=== PATIENT | male | born 1985 | race Caucasian/White ===

== ENCOUNTER 2017-01-16 06:10 | Day surgery (SDC) | payer OTHER ==
[~2017-01-16 06:10] MED LIST: Lactated Ringers 1,000 ML IV SCH; Lidocaine 1%/Sod Bicarbonate in NS 8.4% 1 ML Syringe PRN; Sodium Chloride 0.9% 10 ML Syringe FLUSH PRN
[2017-01-16] MEDS ORDERED: Ondansetron 4 MG/2 ML SDV ONE (06:32)
[2017-01-16] MEDS ORDERED: Propofol 200 MG/20 ML SDV ONE ×2 (06:32→06:51)
[2017-01-16] MEDS ORDERED: ceFAZolin 1 GM Vial ONE (06:32)
[2017-01-16] MEDS ORDERED: Lidocaine 1% 4 ML ONE (06:32)
[2017-01-16] MEDS ORDERED: Dexamethasone 4 MG/ML SDV ONE (06:32)
[2017-01-16] MEDS ORDERED: fentaNYL 250 MCG/5 ML SDV ONE (06:33)
[2017-01-16] MEDS ORDERED: Midazolam 1 MG/ML 2 ML SDV ONE (06:33)
[2017-01-16] MEDS ORDERED: EPINEPHrine 1 MG/ML 30 ML MDV ONE (06:40)
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
[2017-01-16] MEDS: Bupivacaine 0.25% 30 ML SDV ONE ×2 (08:05→08:13)
[2017-01-16] MEDS ORDERED: Ondansetron 4 MG/2 ML SDV IVPUSH PRN (08:30)
[2017-01-16] MEDS ORDERED: diphenhydrAMINE 50 MG/ML SDV IVPUSH PRN (08:30)
--- NOTE | 2017-01-16 08:31 | PCM.POSTAN ---
POST ANESTHESIA ASSESSMENT - MENTAL STATUS Mental Status: Alert, Oriented - VITAL SIGNS Pulse Rate: 69 SaO2: 98 Resp Rate: 10 Blood Pressure: 127/78 Temperature: 36.4 C - RESPIRATORY Respiratory Status: Respiratory Rate WNL, Airway Patent, O2 Saturation Stable - CARDIOVASCULAR CV Status: Pulse Rate WNL, Blood Pressure Stable - GASTROINTESTINAL GI Status: No Symptoms - PAIN Pain Score: 0 - POST OP HYDRATION Hydration Status: Adequate & Stable
[2017-01-16] MEDS ORDERED: HYDROmorphone 0.5 MG/0.5 ML Syringe IVPUSH PRN (09:00)
[2017-01-16] MEDS ORDERED: fentaNYL 100 MCG/2 ML SDV IVPUSH PRN (09:00)
[2017-01-16] MEDS ORDERED: Acetaminophen/HYDROcodone 325-5 MG Tab PO PRN (09:06)
--- NOTE | 2017-01-16 09:15 | PCM48HPAN ---
Post Anesthesia Note - EVALUATION WITHIN 48HRS OF ANESTHETIC Vital Signs in Normal Range: Yes Patient Participated in Evaluation: Yes Respiratory Function Stable: Yes Airway Patent: Yes Cardiovascular Function Stable: Yes Hydration Status Stable: Yes Pain Control Satisfactory: Yes Nausea and Vomiting Control Satisfactory: Yes Mental Status Recovered: Yes
[2017-01-16] MEDS ORDERED: Lactated Ringers 1,000 ML ONE (09:30)
[2017-01-16 10:09] VITALS: BP 128/80
--- NOTE | 2017-01-16 10:59 | PCM.OPNOTE ---
- General Post-Op/Procedure Note Date of Surgery/Procedure: 01/16/17 Operative Procedure(s): right knee arthroscopy with medial meniscus repair and partial lateral meniscectomy Pre Op Diagnosis: right knee medial meniscus tear Post-Op Diagnosis: right knee medial and lateral meniscus tears Anesthesia Technique: General LMA, Local Primary Surgeon: Osbaldo Corbett Anesthesia Provider: Chevy Duque Elder Counselor: Freda Luu EBL in mLs: 5 Complications: None Condition: Good Free Text/Narrative:: Intake & Output 01/15/17 01/16/17 01/16/17 22:59 06:59 14:59 Intake Total 600 Balance 600
--- NOTE | 2017-01-22 08:51 | OR ---
DATE OF OPERATION: 01/16/2017 SURGEON: Osbaldo Corbett MD OPERATION PERFORMED: Right knee video arthroscopy with medial meniscus repair and partial lateral meniscectomy. PREOPERATIVE DIAGNOSIS: Right knee medial meniscus tear. POSTOPERATIVE DIAGNOSIS: Right knee medial meniscus tear and lateral meniscus tear. ANESTHESIA: General LMA with local. ANESTHESIA PROVIDER: Chevy Duque. OPTICIAN APPRENTICE DISPENSING: Fread Luu PA-C. ESTIMATED BLOOD LOSS: Less than 5 mL. COMPLICATIONS: None. CONDITION: Stable. DESCRIPTION OF PROCEDURE: The patient was identified in the preop holding area. Proper site was marked and identified by the surgeon. The patient was taken back to the operative theater where after adequate anesthesia, the patient's left lower extremity was placed in a well leg buckley. Right lower extremity had a nonsterile tourniquet applied and that was placed in a C-clamp buckley. The end of the bed was then lowered. The right knee was then sterilely prepped and draped in usual sterile fashion. OR time-out was performed. The patient received 2 g of IV Ancef. Right lower extremity was then exsanguinated. Tourniquet was insufflated to 250 mmHg. Standard anterolateral portal was created and the scope trocar was introduced into the knee. At this time, the patellofemoral joint showed no signs of chondromalacia. There was no significant plica. There were no loose bodies in the mediolateral gutter. Attention was turned to the medial compartment. With use of a spinal needle, anteromedial portal was created. At this time, there was noted to be a tear of the posterior 3rd horn of the medial meniscus. It was at the red zone, so it was repairable. At this time, meniscal rasp was used to rasp the tear and 2 all-inside [employer] meniscal repair anchors were then used. It was found to have adequate watertight repair with jehovah's witness of the meniscus. Attention was turned to the notch and the notch of the ACL was found to be intact. On the lateral compartment, there was no chondromalacia but there was noted to be a degenerative type complex tear to the posterior 3rd of the lateral meniscus. At this time, a partial meniscectomy of the lateral meniscus was done of the undersurface portion of the posterior 3rd. The upper portion was still left intact and was found to be stable. At this time, excess saline was drained from the knee, 3-0 nylon simple suture was used for closure of the skin. The patient was placed in a sterile soft dressing and was sent to the PACU in stable condition. NAGA /[id number]
== END 2017-01-16 10:15 | disposition home or self-care (01) ==
LOC: JD.SDS 06:10
PROVIDERS: ATTEND Orthopaedic Surgery
DX: M23.221 Derangement of posterior horn of medial meniscus due to old tear or injury, right knee (principal); M23.251 Derangement of posterior horn of lateral meniscus due to old tear or injury, right knee; E55.9 Vitamin D deficiency, unspecified; Z91.09 Other allergy status, other than to drugs and biological substances; Z79.899 Other long term (current) drug therapy; Z98.890 Other specified postprocedural states
CPT/HCPCS: 29880; 87641; J0171; J0690; J1100; J1170; J2250; J2405; J3010; J3490; J7120; 01400; J2704

== ENCOUNTER 2017-02-27 06:14 | Day surgery (SDC) | payer OTHER ==
[~2017-02-27 06:14] MED LIST changes: +Lidocaine 1%/Sod Bicarbonate in NS 8.4% 1 ML Syringe IV PRN; -Lidocaine 1%/Sod Bicarbonate in NS 8.4% 1 ML Syringe PRN
[2017-02-27] MEDS ORDERED: Lidocaine 1% 30 ML SDV ONE (07:23)
[2017-02-27] MEDS ORDERED: Bupivacaine 0.25% 30 ML SDV ONE (07:23)
[2017-02-27 08:46] VITALS: BP 105/72
--- NOTE | 2017-03-05 22:15 | PCM.OPNOTE ---
- General Post-Op/Procedure Note Date of Surgery/Procedure: 02/27/17 Operative Procedure(s): excision of mass right third finger Pre Op Diagnosis: mass dorsum of right middle finger Post-Op Diagnosis: Same Anesthesia Technique: Local Primary Surgeon: Osbaldo Corbett [employer]airy [employer] Sales Consultant: Freda Luu in mLs: 5 Complications: None Condition: Good
--- NOTE | 2017-03-05 22:47 | OR ---
DATE OF OPERATION: 02/27/2017 SURGEON: Osbaldo Corbett MD OPERATION PERFORMED: Excision of mass right third finger. PREOPERATIVE DIAGNOSIS: Mass, dorsum of right middle finger. POSTOPERATIVE DIAGNOSIS: Mass, dorsum of right middle finger. ANESTHESIA: Technique, local. ANESTHESIA PROVIDER: None. ASSISTANTS: Freda Luu PA-C. ESTIMATED BLOOD LOSS: Less than 5 mL. PATHOLOGY SPECIMEN: Sent from the dorsum of the left long finger. COMPLICATIONS: None. CONDITION: Stable. DESCRIPTION OF PROCEDURE: The patient was identified in the preoperative holding area, proper site was marked, and identified by the surgeon. The patient was taken back to the operating theater, where after adequate anesthesia, the patient's left upper extremity was sterilely prepped and draped in the usual sterile fashion. OR time-out was performed. The patient received antibiotic as it is not indicated for soft tissue hand procedure. At this time, the left upper extremity was exsanguinated with an Esmarch and the Esmarch was then used on the forearm as a tourniquet. 1% lidocaine without epinephrine and 0.25% lidocaine without epinephrine was then used to anesthetize the incisional site over the middle phalanx just distal to the PIP joint where the soft tissue mass was. The patient was found to be adequately anesthetized. At this time, longitudinal was incision was made directly over the mass roughly only 1 cm incision. The mass was readily visible and subcutaneous tissues after this was done, and it was free for all adherence of soft tissue. At this time, it was noted to be well encapsulated with no signs of adhesions to the surrounding tissue and no discoloration. At this time, this was sent for the pathology specimen. Adequate saline was then irrigated through the wound and couple of nylon simple sutures were used for closure of the skin. The patient had sterile soft dressing applied and was sent to PACU in stable condition. MMODAL /[id number]
== END 2017-02-27 08:40 | disposition home or self-care (01) ==
LOC: JD.SDS 06:14
PROVIDERS: ATTEND Orthopaedic Surgery
DX: D36.10 Benign neoplasm of peripheral nerves and autonomic nervous system, unspecified (principal); F32.9 Major depressive disorder, single episode, unspecified; E55.9 Vitamin D deficiency, unspecified; Z79.899 Other long term (current) drug therapy; Z98.890 Other specified postprocedural states
CPT/HCPCS: 64788; 87641; 88305; 88341; 88342; J3490